=== PATIENT | female | born 1945 | race Caucasian/White ===

== ENCOUNTER → 2024-07-27 08:12 | Outpatient (REF) | payer MEDICARE, OTHER, SELFPAY | LOC: PAVMRI 08:12 | DX: M25.512 Pain in left shoulder (principal) | CPT/HCPCS: 73221 ==

== ENCOUNTER → 2024-08-13 08:21 | Outpatient (REF) | payer MEDICARE, OTHER, SELFPAY | LOC: HWWDC 08:21 | DX: Z12.31 Encounter for screening mammogram for malignant neoplasm of breast (principal); M85.80 Other specified disorders of bone density and structure, unspecified site; M85.89 Other specified disorders of bone density and structure, multiple sites | CPT/HCPCS: 77063; 77067; 77080 ==

== ENCOUNTER → 2024-10-15 11:28 | Outpatient (REF) | payer MEDICARE, OTHER, SELFPAY | LOC: HWRCS 11:28 | PROVIDERS: ATTENDING PHYSICIAN Internal Medicine Cardiovascular Disease | DX: Z01.810 Encounter for preprocedural cardiovascular examination (principal); I44.7 Left bundle-branch block, unspecified; I10 Essential (primary) hypertension | CPT/HCPCS: 78452; 93017; A9500; J2785 ==